=== PATIENT | female | born 1970 | race Caucasian/White ===

== ENCOUNTER → 2021-07-17 | Day surgery (SDC) | payer OTHER ==
[~2021-07-17] VITALS: Ht 170 cm; Wt 67.0 kg
[~2021-07-17] MED LIST: CITALOPRAM HBR20 MG PO; DICLOFENAC SODI75 MG PO; LIDOCAINE IJ; SUMATRIPTAN SU100 MG PO; ZONISAMIDE100 MG PO
[2021-07-17 08:49] LABS: HCG (URINE) SCREEN NEGATIVE (NEGATIVE)
== END | disposition home or self-care (01) ==
LOC: FAS 07:59
PROVIDERS: Anesthesiology
DX: K31.9 Disease of stomach and duodenum, unspecified (principal); K26.9 Duodenal ulcer, unspecified as acute or chronic, without hemorrhage or perforation; K29.80 Duodenitis without bleeding; Z12.11 Encounter for screening for malignant neoplasm of colon; K63.5 Polyp of colon; M19.90 Unspecified osteoarthritis, unspecified site; G43.909 Migraine, unspecified, not intractable, without status migrainosus; R59.0 Localized enlarged lymph nodes; E78.00 Pure hypercholesterolemia, unspecified; Z88.5 Allergy status to narcotic agent; Z98.51 Tubal ligation status; K29.70 Gastritis, unspecified, without bleeding
CPT/HCPCS: 84703; J2250; J2704; J7120